=== PATIENT | male | born 1970 | race Caucasian/White ===

== ENCOUNTER 2023-01-16 07:38 | Outpatient (RCR) | payer OTHER, SELFPAY ==
[2023-01-01 11:43] LABS: Basophils Absolute Auto 0.1 10^3/uL (0.0-0.1); Basophils Percent Auto 1.2 % (0.2-2.0); Eosinophils Absolute Auto 0.1 10^3/uL (0.0-0.7); Eosinophils Percent Auto 0.6 % (0.9-7.0); Hematocrit 63.4 % (42.0-54.0); Hemoglobin 21.8 g/dL (14.0-18.0); Immature Granulocytes Abs Auto 0.19 10^3/uL (0.00-0.03); Lymphocytes Percent Auto 20.4 % (20.5-60.0); Mean Corpuscular HGB Conc 34.4 g/dL (29.9-35.2); Mean Corpuscular Hemoglobin 30.8 pg (25.9-34.0); Mean Corpuscular Volume 89.7 fL (80.0-94.0); Mean Platelet Volume 10.8 fL (9.5-13.5); Monocytes Absolute Auto 0.8 10^3/uL (0.3-0.8); Monocytes Percent Auto 8.5 % (1.7-12.0); Neutrophils Absolute Auto 6.4 10^3/uL (1.4-6.5); Neutrophils Percent Auto 67.3 % (43.0-75.0); Platelet Count 192 10^3/uL (150-450); Red Blood Count 7.07 10^6/uL (4.70-6.10); Red Cell Distribution Width 13.8 % (11.0-15.0); White Blood Count 9.5 10^3/uL (4.0-11.0)
[2023-01-01 12:06] LABS: Percent Iron Saturation 32.8 %
[2023-01-02 08:11] LABS: Testosterone 714 ng/dL (264-916)
[2023-01-02 08:59] VITALS: BP 143/87; PULSE 93; RESP 16; O2SAT 94
[2023-01-02 10:33] VITALS: BP 127/79; PULSE 94; RESP 18; TEMP 36.8; O2SAT 94
--- NOTE | 2023-01-02 10:35 | PC.NURSE ---
0830: Pt. to [facility] amb. per self. Seated in recliner. Procedure explained to patient, questions addressed. VSS. 0844: Using aseptic technique, right AC accessed using needle attached to [employer] dry collection bag. Immediate return of blood observed draining into bag. Needle secured to arm. Pt. given ball to squeeze intermittently. Pt. tolerates without c/o. 0849: Blood continues to drain easily into collection back. IV site without edema or redness. No leaking around site. Pt. without c/o. 0859: Procedure complete. 500 mL blood obtained. IV d/c'd, pressure to site. VSS. Pt. without c/o dizziness or nausea. 0904: Pt. given snack and water. D/c'd to home amb.
[2023-01-02 16:09] LABS: Erythropoietin (EPO), Serum 9.8 mIU/mL (2.6-18.5)
[2023-01-07 11:53] LABS: Basophils Absolute Auto 0.1 10^3/uL (0.0-0.1); Eosinophils Percent Auto 0.4 % (0.9-7.0); Hematocrit 60.1 % (42.0-54.0); Immature Granulocytes Abs Auto 0.15 10^3/uL (0.00-0.03); Immature Granulocytes Pct Auto 1.5 % (0.0-0.5); Lymphocytes Absolute Auto 2.3 10^3/uL (1.2-3.8); Lymphocytes Percent Auto 22.4 % (20.5-60.0); Mean Corpuscular HGB Conc 34.9 g/dL (29.9-35.2); Mean Corpuscular Hemoglobin 30.6 pg (25.9-34.0); Mean Corpuscular Volume 87.5 fL (80.0-94.0); Mean Platelet Volume 10.9 fL (9.5-13.5); Monocytes Absolute Auto 0.8 10^3/uL (0.3-0.8); Monocytes Percent Auto 7.4 % (1.7-12.0); Neutrophils Percent Auto 67.3 % (43.0-75.0); Platelet Count 200 10^3/uL (150-450); Red Blood Count 6.87 10^6/uL (4.70-6.10); Red Cell Distribution Width 13.2 % (11.0-15.0); White Blood Count 10.3 10^3/uL (4.0-11.0)
[2023-01-09 08:35] VITALS: BP 125/84; PULSE 87; RESP 18; TEMP 36.6; O2SAT 97
[2023-01-09 08:54] VITALS: BP 130/82; PULSE 98; RESP 18; TEMP 36.6; O2SAT 94
--- NOTE | 2023-01-09 08:58 | PC.NURSE ---
Vein in L forearm accessed with 16G needle by Vito Henry RN. 500mL phlebotomy over 15 minutes. Patient tolerated well. Needle discontinued. Cotton ball and Coban applied.
[2023-01-11 14:33] VITALS: BP 124/90; RESP 18; TEMP 36.5; O2SAT 95
--- NOTE | 2023-01-11 14:37 | PC.NURSE ---
6034 Arrival ambulatory to chair 2. alert and oriented. Instructed on phlebotomy. Educated on increasing fluids for the next 24 hours. Verbalized understanding. # 16 gauage needle inserted rt arm on 1st attempt, tolerated well. Released ambulatory
[2023-01-14 16:39] LABS: Basophils Absolute Auto 0.1 10^3/uL (0.0-0.1); Eosinophils Absolute Auto 0.1 10^3/uL (0.0-0.7); Eosinophils Percent Auto 0.8 % (0.9-7.0); Hematocrit 54.7 % (42.0-54.0); Hemoglobin 18.9 g/dL (14.0-18.0); Immature Granulocytes Abs Auto 0.09 10^3/uL (0.00-0.03); Immature Granulocytes Pct Auto 0.8 % (0.0-0.5); Lymphocytes Absolute Auto 2.9 10^3/uL (1.2-3.8); Mean Corpuscular HGB Conc 34.6 g/dL (29.9-35.2); Mean Platelet Volume 10.8 fL (9.5-13.5); Monocytes Absolute Auto 0.9 10^3/uL (0.3-0.8); Monocytes Percent Auto 8.1 % (1.7-12.0); Neutrophils Absolute Auto 6.7 10^3/uL (1.4-6.5); Neutrophils Percent Auto 62.3 % (43.0-75.0); Platelet Count 233 10^3/uL (150-450); Red Blood Count 6.29 10^6/uL (4.70-6.10); Red Cell Distribution Width 12.2 % (11.0-15.0); White Blood Count 10.8 10^3/uL (4.0-11.0)
[2023-01-16 08:53] VITALS: BP 119/81; PULSE 92; RESP 16; O2SAT 94
--- NOTE | 2023-01-16 09:02 | PC.NURSE ---
0831: Pt. to [facility] amb. Seated in recliner. Given water. Pt. denies c/o n/v, pain or dyspnea. VSS. 0836: Using aseptic technique, left forearm vein accessed for therapeutic phlebotomy. Slow return of blood. Tourniquet in place, pt. squeezing stress ball. 0846: 50ML blood returned at very slow rate. IV d/c'd pressure to site. 0847: Using aseptic technique, left ac accessed with immediate, fast return of blood. Pt. without c/o. 0853: 500 ML blood obtained in dry TP bag. IV d/c'd, pressure to site. Pt. tolerated without s&s of adverse reaction. VSS. Pt. drinking bottle of water. Coban wrapped around both IV puncture sites. 0902: Pt. denies c/o syncope or nausea. D/c'd amb. to home
[2023-01-16 09:06] VITALS: BP 118/78; PULSE 90; RESP 16; TEMP 32.2; O2SAT 95
== END 2023-01-29 23:59 | disposition home or self-care (01) ==
LOC: INF 07:38
PROVIDERS: Family Provider Family Medicine; PCP Family Medicine; Visit Provider Internal Medicine Hematology & Oncology
DX: D45 Polycythemia vera (principal)
CPT/HCPCS: 36415; 51701; 82668; 82728; 83540; 83550; 84403; 85025; 99195; G0463

== ENCOUNTER 2023-02-13 07:32 | Outpatient (RCR) | payer OTHER, SELFPAY ==
[2023-02-05 08:50] LABS: Basophils Absolute Auto 0.1 10^3/uL (0.0-0.1); Basophils Percent Auto 0.9 % (0.2-2.0); Eosinophils Absolute Auto 0.1 10^3/uL (0.0-0.7); Eosinophils Percent Auto 1.1 % (0.9-7.0); Hematocrit 51.7 % (42.0-54.0); Immature Granulocytes Abs Auto 0.11 10^3/uL (0.00-0.03); Immature Granulocytes Pct Auto 1.2 % (0.0-0.5); Lymphocytes Absolute Auto 2.3 10^3/uL (1.2-3.8); Lymphocytes Percent Auto 24.3 % (20.5-60.0); Mean Corpuscular HGB Conc 34.8 g/dL (29.9-35.2); Mean Corpuscular Hemoglobin 30.4 pg (25.9-34.0); Mean Corpuscular Volume 87.3 fL (80.0-94.0); Mean Platelet Volume 10.5 fL (9.5-13.5); Monocytes Absolute Auto 0.7 10^3/uL (0.3-0.8); Monocytes Percent Auto 7.4 % (1.7-12.0); Neutrophils Absolute Auto 6.2 10^3/uL (1.4-6.5); Neutrophils Percent Auto 65.1 % (43.0-75.0); Platelet Count 216 10^3/uL (150-450); Red Blood Count 5.92 10^6/uL (4.70-6.10); Red Cell Distribution Width 11.9 % (11.0-15.0); White Blood Count 9.5 10^3/uL (4.0-11.0)
[2023-02-05 09:17] LABS: Percent Iron Saturation 42.5 %
[2023-02-06 04:11] LABS: Testosterone 98 ng/dL (264-916)
[2023-02-07 09:18] VITALS: BP 126/83; PULSE 87; RESP 16; TEMP 36.2; O2SAT 96
--- NOTE | 2023-02-07 09:19 | PC.NURSE ---
0800 arrival ambulatory to chair 1. VS obtained. reviewed procedure, verbalizes understanding.0805 venipuncture RACF, phelbotomy utilizing Blanca collection monitor.0820 total of 500 ml obtained. phlebotomy completed. patient tolerated well. VS obtained 109/73 p 90 r 16 spo2 95%. denies any dizziness. drinks 16 ounce bottle of water. 0825 Released ambulatory.
--- NOTE | 2023-02-13 08:03 | PC.NURSE ---
0755 Arrival ambulatory to chair 1. did not have labs drawn prior to arrival. Labs drawn per nurse, sent to lab. Patient request to go to [facility] while awaiting lab results.
[2023-02-13 08:18] LABS: Basophils Absolute Auto 0.1 10^3/uL (0.0-0.1); Basophils Percent Auto 0.8 % (0.2-2.0); Eosinophils Absolute Auto 0.1 10^3/uL (0.0-0.7); Eosinophils Percent Auto 0.8 % (0.9-7.0); Hematocrit 47.3 % (42.0-54.0); Hemoglobin 16.6 g/dL (14.0-18.0); Immature Granulocytes Abs Auto 0.15 10^3/uL (0.00-0.03); Immature Granulocytes Pct Auto 1.5 % (0.0-0.5); Lymphocytes Absolute Auto 2.1 10^3/uL (1.2-3.8); Lymphocytes Percent Auto 20.8 % (20.5-60.0); Mean Corpuscular HGB Conc 35.1 g/dL (29.9-35.2); Mean Corpuscular Hemoglobin 30.3 pg (25.9-34.0); Mean Corpuscular Volume 86.3 fL (80.0-94.0); Mean Platelet Volume 10.9 fL (9.5-13.5); Monocytes Absolute Auto 0.7 10^3/uL (0.3-0.8); Monocytes Percent Auto 6.7 % (1.7-12.0); Neutrophils Absolute Auto 7.1 10^3/uL (1.4-6.5); Neutrophils Percent Auto 69.4 % (43.0-75.0); Platelet Count 198 10^3/uL (150-450); Red Blood Count 5.48 10^6/uL (4.70-6.10); Red Cell Distribution Width 11.7 % (11.0-15.0); White Blood Count 10.2 10^3/uL (4.0-11.0)
--- NOTE | 2023-02-13 08:24 | PC.NURSE ---
0823 hg 16.6 phlebotomy not needed. patientreleased ambulatory
== END 2023-02-28 23:59 | disposition home or self-care (01) ==
LOC: INF 07:32
PROVIDERS: Family Provider Family Medicine; PCP Family Medicine; Visit Provider Internal Medicine Hematology & Oncology
DX: D45 Polycythemia vera (principal)
CPT/HCPCS: 36415; 82728; 83540; 83550; 84403; 85025; 99195; G0463

== ENCOUNTER 2023-03-05 07:43 | Outpatient (RCR) | payer OTHER, SELFPAY ==
[2023-03-05 14:33] LABS: Basophils Absolute Auto 0.1 10^3/uL (0.0-0.1); Eosinophils Absolute Auto 0.1 10^3/uL (0.0-0.7); Eosinophils Percent Auto 1.3 % (0.9-7.0); Hemoglobin 17.2 g/dL (14.0-18.0); Immature Granulocytes Abs Auto 0.12 10^3/uL (0.00-0.03); Immature Granulocytes Pct Auto 1.3 % (0.0-0.5); Lymphocytes Absolute Auto 2.6 10^3/uL (1.2-3.8); Lymphocytes Percent Auto 27.9 % (20.5-60.0); Mean Corpuscular HGB Conc 35.1 g/dL (29.9-35.2); Mean Corpuscular Hemoglobin 30.1 pg (25.9-34.0); Mean Corpuscular Volume 85.7 fL (80.0-94.0); Mean Platelet Volume 11.1 fL (9.5-13.5); Monocytes Absolute Auto 0.7 10^3/uL (0.3-0.8); Monocytes Percent Auto 7.8 % (1.7-12.0); Neutrophils Absolute Auto 5.5 10^3/uL (1.4-6.5); Neutrophils Percent Auto 60.7 % (43.0-75.0); Platelet Count 214 10^3/uL (150-450); Red Blood Count 5.72 10^6/uL (4.70-6.10); Red Cell Distribution Width 11.9 % (11.0-15.0); White Blood Count 9.1 10^3/uL (4.0-11.0)
[2023-03-05 15:01] LABS: Percent Iron Saturation 41.9 %
[2023-03-06 04:07] LABS: Testosterone 185 ng/dL (264-916)
== END 2023-03-05 08:30 | disposition home or self-care (01) ==
LOC: INF 07:43
PROVIDERS: Family Provider Family Medicine; PCP Family Medicine; Visit Provider Internal Medicine Hematology & Oncology
DX: D45 Polycythemia vera (principal)
CPT/HCPCS: 36415; 82728; 83540; 83550; 84403; 85025; G0463